=== PATIENT | male | born 1955 | race Caucasian/White ===

== ENCOUNTER 2020-01-22 10:14 | Inpatient (IN) ==
[2020-01-22 12:09] LABS: Basophils % 0.1 % (0.0-0.8); Hematocrit 44.9 VOL% (42.0-52.0); Hemoglobin 14.9 GM/DL (14.0-18.0); Immature Granulocytes % 0.9 %; Immature Granulocytes Absolute 0.07 #; Lymphocytes # 0.3 10*3/uL (1.4-4.0); Lymphocytes % 3.7 % (21.2-54.2); Mean Corpuscular HGB Conc 33.2 GM/DL (32-36); Mean Corpuscular Volume 92.2 FL (87-102); Mean Platelet Volume 9.2 FL (9.6-12.0); Monocytes % 4.4 % (1.7-12.7); Neutrophils % 90.9 % (38.7-73.9); Platelet Count 159 T/CUMM (130-400); Red Blood Count 4.87 MC/CUMM (3.8-5.5); Red Cell Distribution Width 13.4 % (9.3-17.3)
[2020-01-22 12:39] LABS: Alanine Aminotransferase 30 U/L (16-61); Albumin 3.2 G/DL (3.4-5.0); Alkaline Phosphatase 71 U/L (45-117); Aspartate Amino Transferase 20 U/L (0-37); Blood Urea Nitrogen 20 MG/DL (7-18); Calcium 9.2 MG/DL (8.5-10.1); Estimated Glom Filtration Rate 86 ML/MIN; Glucose 189 MG/DL (74-106); Osmolality,Calculated 284.5 MOS/KG (273-304); Total Protein 7.3 G/DL (6.4-8.3); Troponin I < 0.015 NG/ML (0.00-0.045)
[2020-01-22 14:06] LABS: PT Patient Result 10.4 SECS (9.8-11.9); Partial Thromboplastin Time 30.3 SECS (23.9-33.8)
[2020-01-22] MEDS ORDERED: GLUCAGON 1 MG VIAL IM PRN (14:23)
[2020-01-22] MEDS ORDERED: DEXTROSE 50% 25 GM/50 ML VIAL IV PRN (14:23)
[2020-01-22] MEDS ORDERED: ONDANSETRON 4 MG/2 ML VIAL IV PRN (14:23)
[2020-01-22] MEDS ORDERED: hydrALAZINE 20 MG/1 ML VIAL IV PRN (14:23)
[2020-01-22 14:26] LABS: Hypochromasia 1+; Lymphocytes 1 % (20-55); Segmented Neutrophils 93 % (50-85); Total Cells Counted 100
[2020-01-22 14:30] LABS: Platelet Estimate Normal
[2020-01-22 15:02] LABS: Risk Ratio 1.34; Thyroid Stimulating Hormone 0.412 uIU/ml (0.358-3.74); VLDL CHOLESTEROL 14.4 MG/DL
[2020-01-22] MEDS: AZITHROMYCIN 250 MG TABLET PO SCH (16:06)
[2020-01-22] MEDS: DEXAMETHASONE 4 MG TABLET PO SCH (16:06)
[2020-01-22] MEDS: ZINC SULFATE 220 MG CAPSULE PO SCH (16:06)
[2020-01-22] MEDS: CHOLECALCIFEROL 1,000 UNIT TABLET PO SCH (16:06)
[2020-01-22] MEDS: cefTRIAXone 1,000 MG in SYRINGE 1 EACH IV SCH (16:06)
[2020-01-22] MEDS: ENOXAPARIN 40 MG/0.4 ML SYRINGE SUBCUT SCH (16:24)
[2020-01-22] MEDS: TICAGRELOR 90 MG TABLET PO SCH (20:35)
[2020-01-22] MEDS: LOSARTAN 50 MG TABLET PO SCH (20:35)
[2020-01-22] MEDS: ATORVASTATIN 40 MG TABLET PO SCH (20:35)
[2020-01-22] MEDS: AZELASTINE NASAL 137 MCG/SPRAY 30 ML BOTTLE BOTH NARES SCH (20:35)
[2020-01-22] MEDS: BUDESONIDE/FORMOTEROL 160-4.5 INHALER 6 GM INH SCH (20:36)
[2020-01-22] MEDS: ALBUTEROL INHALER 18 GM INH SCH (20:36)
[2020-01-22] MEDS: ASCORBIC ACID 500 MG TABLET PO SCH (20:41)
[2020-01-23] MEDS: ALBUTEROL INHALER 18 GM INH SCH ×4 (01:12→20:24)
[2020-01-23 03:41] LABS: Basophils % 0.2 % (0.0-0.8); Hematocrit 43.6 VOL% (42.0-52.0); Hemoglobin 14.3 GM/DL (14.0-18.0); Immature Granulocytes % 2.3 %; Immature Granulocytes Absolute 0.13 #; Lymphocytes # 0.5 10*3/uL (1.4-4.0); Lymphocytes % 8.4 % (21.2-54.2); Mean Corpuscular HGB Conc 32.8 GM/DL (32-36); Mean Corpuscular Volume 91.8 FL (87-102); Mean Platelet Volume 9.2 FL (9.6-12.0); Monocytes % 9.2 % (1.7-12.7); Neutrophils % 79.9 % (38.7-73.9); Platelet Count 171 T/CUMM (130-400); Red Blood Count 4.75 MC/CUMM (3.8-5.5); White Blood Count 5.7 T/CUMM (4-12)
[2020-01-23 04:03] LABS: Calcium 8.8 MG/DL (8.5-10.1); Osmolality,Calculated 282.5 MOS/KG (273-304)
[2020-01-23] MEDS: AZELASTINE NASAL 137 MCG/SPRAY 30 ML BOTTLE BOTH NARES SCH ×2 (09:28→20:24)
[2020-01-23] MEDS: TICAGRELOR 90 MG TABLET PO SCH ×2 (09:28→20:24)
[2020-01-23] MEDS: DEXAMETHASONE 4 MG TABLET PO SCH (09:28)
[2020-01-23] MEDS: PANTOPRAZOLE 40 MG TABLET PO SCH (09:28)
[2020-01-23] MEDS: LOSARTAN 50 MG TABLET PO SCH ×2 (09:28→20:23)
[2020-01-23] MEDS: ENOXAPARIN 40 MG/0.4 ML SYRINGE SUBCUT SCH (09:28)
[2020-01-23] MEDS: cefTRIAXone 1,000 MG in SYRINGE 1 EACH IV SCH (09:29)
[2020-01-23] MEDS: BUDESONIDE/FORMOTEROL 160-4.5 INHALER 6 GM INH SCH ×2 (09:29→20:23)
[2020-01-23] MEDS: MONTELUKAST 10 MG TABLET PO SCH (09:29)
[2020-01-23] MEDS: THEOPHYLLINE ER 300 MG TABLET PO SCH (09:29)
[2020-01-23] MEDS: ASCORBIC ACID 500 MG TABLET PO SCH ×2 (09:30→20:23)
[2020-01-23] MEDS: CHOLECALCIFEROL 1,000 UNIT TABLET PO SCH (09:30)
[2020-01-23] MEDS: AZITHROMYCIN 250 MG TABLET PO SCH (09:30)
[2020-01-23] MEDS: ZINC SULFATE 220 MG CAPSULE PO SCH (09:30)
[2020-01-23] MEDS: METOPROLOL SUCCINATE XL 25 MG TABLET PO SCH (09:30)
[2020-01-23] MEDS: ATORVASTATIN 40 MG TABLET PO SCH (20:23)
[2020-01-24] MEDS: ALBUTEROL INHALER 18 GM INH SCH ×4 (01:52→19:27)
[2020-01-24 03:49] LABS: Basophils % 0.1 % (0.0-0.8); Hematocrit 45.6 VOL% (42.0-52.0); Immature Granulocytes % 0.7 %; Immature Granulocytes Absolute 0.06 #; Lymphocytes # 0.9 10*3/uL (1.4-4.0); Lymphocytes % 11.4 % (21.2-54.2); Mean Corpuscular HGB Conc 32.9 GM/DL (32-36); Mean Corpuscular Volume 93.3 FL (87-102); Mean Platelet Volume 9.6 FL (9.6-12.0); Monocytes % 8.8 % (1.7-12.7); Platelet Count 190 T/CUMM (130-400); Red Blood Count 4.89 MC/CUMM (3.8-5.5); Red Cell Distribution Width 13.1 % (9.3-17.3); White Blood Count 8.3 T/CUMM (4-12)
[2020-01-24 04:33] LABS: Calcium 9.3 MG/DL (8.5-10.1); Osmolality,Calculated 283.4 MOS/KG (273-304)
[2020-01-24] MEDS: cefTRIAXone 1,000 MG in SYRINGE 1 EACH IV SCH (08:59)
[2020-01-24] MEDS: AZELASTINE NASAL 137 MCG/SPRAY 30 ML BOTTLE BOTH NARES SCH ×2 (08:59→21:33)
[2020-01-24] MEDS: TICAGRELOR 90 MG TABLET PO SCH ×2 (08:59→21:32)
[2020-01-24] MEDS: ENOXAPARIN 40 MG/0.4 ML SYRINGE SUBCUT SCH (08:59)
[2020-01-24] MEDS: PANTOPRAZOLE 40 MG TABLET PO SCH (08:59)
[2020-01-24] MEDS: DEXAMETHASONE 4 MG TABLET PO SCH (08:59)
[2020-01-24] MEDS: LOSARTAN 50 MG TABLET PO SCH ×2 (08:59→21:32)
[2020-01-24] MEDS: BUDESONIDE/FORMOTEROL 160-4.5 INHALER 6 GM INH SCH ×2 (09:00→21:33)
[2020-01-24] MEDS: MONTELUKAST 10 MG TABLET PO SCH (09:00)
[2020-01-24] MEDS: ZINC SULFATE 220 MG CAPSULE PO SCH (09:00)
[2020-01-24] MEDS: CHOLECALCIFEROL 1,000 UNIT TABLET PO SCH (09:00)
[2020-01-24] MEDS: METOPROLOL SUCCINATE XL 25 MG TABLET PO SCH (09:00)
[2020-01-24] MEDS: AZITHROMYCIN 250 MG TABLET PO SCH ×2 (09:00→14:36)
[2020-01-24] MEDS: THEOPHYLLINE ER 300 MG TABLET PO SCH (09:00)
[2020-01-24] MEDS: ASCORBIC ACID 500 MG TABLET PO SCH ×2 (09:00→21:30)
[2020-01-24] MEDS: ACETAMINOPHEN 325 MG TABLET PO PRN (12:47)
[2020-01-24] MEDS: ATORVASTATIN 40 MG TABLET PO SCH (21:31)
[2020-01-25] MEDS: ALBUTEROL INHALER 18 GM INH SCH ×4 (00:21→18:14)
[2020-01-25 05:37] LABS: Basophils % 0.2 % (0.0-0.8); Hematocrit 43.6 VOL% (42.0-52.0); Hemoglobin 14.7 GM/DL (14.0-18.0); Immature Granulocytes % 0.6 %; Immature Granulocytes Absolute 0.04 #; Lymphocytes # 0.8 10*3/uL (1.4-4.0); Lymphocytes % 11.9 % (21.2-54.2); Mean Corpuscular HGB Conc 33.7 GM/DL (32-36); Mean Corpuscular Volume 91.2 FL (87-102); Mean Platelet Volume 9.3 FL (9.6-12.0); Monocytes % 9.7 % (1.7-12.7); Neutrophils % 77.6 % (38.7-73.9); Platelet Count 185 T/CUMM (130-400); Red Blood Count 4.78 MC/CUMM (3.8-5.5); Red Cell Distribution Width 12.9 % (9.3-17.3); White Blood Count 6.3 T/CUMM (4-12)
[2020-01-25 06:02] LABS: Calcium 9.3 MG/DL (8.5-10.1); Osmolality,Calculated 282.4 MOS/KG (273-304)
[2020-01-25] MEDS: TICAGRELOR 90 MG TABLET PO SCH ×2 (08:56→20:26)
[2020-01-25] MEDS: AZITHROMYCIN 250 MG TABLET PO SCH (08:57)
[2020-01-25] MEDS: LOSARTAN 50 MG TABLET PO SCH ×2 (08:57→20:26)
[2020-01-25] MEDS: MONTELUKAST 10 MG TABLET PO SCH (08:57)
[2020-01-25] MEDS: METOPROLOL SUCCINATE XL 25 MG TABLET PO SCH (08:58)
[2020-01-25] MEDS: THEOPHYLLINE ER 300 MG TABLET PO SCH (08:58)
[2020-01-25] MEDS: CHOLECALCIFEROL 1,000 UNIT TABLET PO SCH (08:59)
[2020-01-25] MEDS: ASCORBIC ACID 500 MG TABLET PO SCH ×2 (08:59→20:26)
[2020-01-25] MEDS: DEXAMETHASONE 4 MG TABLET PO SCH (09:00)
[2020-01-25] MEDS: PANTOPRAZOLE 40 MG TABLET PO SCH (09:00)
[2020-01-25] MEDS: ZINC SULFATE 220 MG CAPSULE PO SCH (09:00)
[2020-01-25] MEDS: cefTRIAXone 1,000 MG in SYRINGE 1 EACH IV SCH (09:00)
[2020-01-25] MEDS: ENOXAPARIN 40 MG/0.4 ML SYRINGE SUBCUT SCH (09:01)
[2020-01-25] MEDS: AZELASTINE NASAL 137 MCG/SPRAY 30 ML BOTTLE BOTH NARES SCH ×2 (09:01→20:26)
[2020-01-25] MEDS: BUDESONIDE/FORMOTEROL 160-4.5 INHALER 6 GM INH SCH ×2 (09:01→20:26)
[2020-01-25] MEDS: ACETAMINOPHEN 325 MG TABLET PO PRN (20:26)
[2020-01-25] MEDS: ATORVASTATIN 40 MG TABLET PO SCH (20:26)
[2020-01-26] MEDS: ALBUTEROL INHALER 18 GM INH SCH ×4 (00:20→18:02)
[2020-01-26 05:12] LABS: Hematocrit 44.5 VOL% (42.0-52.0); Hemoglobin 14.7 GM/DL (14.0-18.0); Immature Granulocytes % 1.1 %; Immature Granulocytes Absolute 0.08 #; Lymphocytes # 0.7 10*3/uL (1.4-4.0); Lymphocytes % 9.3 % (21.2-54.2); Mean Corpuscular Volume 92.5 FL (87-102); Mean Platelet Volume 8.9 FL (9.6-12.0); Monocytes % 7.9 % (1.7-12.7); Neutrophils % 81.7 % (38.7-73.9); Platelet Count 190 T/CUMM (130-400); Red Blood Count 4.81 MC/CUMM (3.8-5.5); Red Cell Distribution Width 12.8 % (9.3-17.3); White Blood Count 7.2 T/CUMM (4-12)
[2020-01-26 05:34] LABS: Calcium 9.1 MG/DL (8.5-10.1); Osmolality,Calculated 282.4 MOS/KG (273-304)
[2020-01-26] MEDS: MONTELUKAST 10 MG TABLET PO SCH (09:45)
[2020-01-26] MEDS: ASCORBIC ACID 500 MG TABLET PO SCH ×2 (09:45→20:38)
[2020-01-26] MEDS: AZELASTINE NASAL 137 MCG/SPRAY 30 ML BOTTLE BOTH NARES SCH ×2 (09:45→20:37)
[2020-01-26] MEDS: THEOPHYLLINE ER 300 MG TABLET PO SCH (09:45)
[2020-01-26] MEDS: BUDESONIDE/FORMOTEROL 160-4.5 INHALER 6 GM INH SCH ×2 (09:45→20:37)
[2020-01-26] MEDS: AZITHROMYCIN 250 MG TABLET PO SCH (09:45)
[2020-01-26] MEDS: cefTRIAXone 1,000 MG in SYRINGE 1 EACH IV SCH (09:45)
[2020-01-26] MEDS: METOPROLOL SUCCINATE XL 25 MG TABLET PO SCH (09:45)
[2020-01-26] MEDS: DEXAMETHASONE 4 MG TABLET PO SCH (09:45)
[2020-01-26] MEDS: ENOXAPARIN 40 MG/0.4 ML SYRINGE SUBCUT SCH (09:45)
[2020-01-26] MEDS: LOSARTAN 50 MG TABLET PO SCH ×2 (09:45→20:38)
[2020-01-26] MEDS: PANTOPRAZOLE 40 MG TABLET PO SCH (09:45)
[2020-01-26] MEDS: TICAGRELOR 90 MG TABLET PO SCH ×2 (09:45→20:38)
[2020-01-26] MEDS: ZINC SULFATE 220 MG CAPSULE PO SCH (09:45)
[2020-01-26] MEDS: CHOLECALCIFEROL 1,000 UNIT TABLET PO SCH (17:55)
[2020-01-26] MEDS: ATORVASTATIN 40 MG TABLET PO SCH (20:38)
[2020-01-27] MEDS: ALBUTEROL INHALER 18 GM INH SCH ×4 (00:33→18:13)
[2020-01-27 04:30] LABS: ABG Base Excess 3.3 MMOL/L (-2.5-2.5); ABG HCO3 27.3 MMOL/L (20-26); ABG Oxygen Saturation 95.2 % (95-100); ABG PH 7.439 (7.35-7.45); ABG PO2 74.7 MM HG (80-95); ABG TCO2 23.7 MMOL/L (23-27); Allen Test Positive
[2020-01-27] MEDS: AZELASTINE NASAL 137 MCG/SPRAY 30 ML BOTTLE BOTH NARES SCH ×2 (09:36→20:58)
[2020-01-27] MEDS: TICAGRELOR 90 MG TABLET PO SCH ×2 (09:36→20:58)
[2020-01-27] MEDS: LOSARTAN 50 MG TABLET PO SCH ×2 (09:36→20:58)
[2020-01-27] MEDS: DEXAMETHASONE 4 MG/1 ML VIAL IV SCH (09:36)
[2020-01-27] MEDS: ENOXAPARIN 40 MG/0.4 ML SYRINGE SUBCUT SCH (09:37)
[2020-01-27] MEDS: ZINC SULFATE 220 MG CAPSULE PO SCH (09:37)
[2020-01-27] MEDS: AZITHROMYCIN 250 MG TABLET PO SCH (09:37)
[2020-01-27] MEDS: CHOLECALCIFEROL 1,000 UNIT TABLET PO SCH (09:37)
[2020-01-27] MEDS: ASCORBIC ACID 500 MG TABLET PO SCH ×2 (09:37→20:58)
[2020-01-27] MEDS: METOPROLOL SUCCINATE XL 25 MG TABLET PO SCH (09:37)
[2020-01-27] MEDS: MONTELUKAST 10 MG TABLET PO SCH (09:37)
[2020-01-27] MEDS: PANTOPRAZOLE 40 MG TABLET PO SCH (09:37)
[2020-01-27] MEDS: BUDESONIDE/FORMOTEROL 160-4.5 INHALER 6 GM INH SCH ×2 (09:37→20:59)
[2020-01-27] MEDS: cefTRIAXone 1,000 MG in SYRINGE 1 EACH IV SCH (09:37)
[2020-01-27] MEDS: THEOPHYLLINE ER 300 MG TABLET PO SCH (09:37)
[2020-01-27 09:47] LABS: Basophils % 0.1 % (0.0-0.8); Hematocrit 43.5 VOL% (42.0-52.0); Hemoglobin 14.5 GM/DL (14.0-18.0); Immature Granulocytes Absolute 0.08 #; Lymphocytes # 0.7 10*3/uL (1.4-4.0); Lymphocytes % 8.1 % (21.2-54.2); Mean Corpuscular HGB Conc 33.3 GM/DL (32-36); Mean Platelet Volume 8.9 FL (9.6-12.0); Monocytes % 5.6 % (1.7-12.7); Neutrophils % 85.2 % (38.7-73.9); Platelet Count 191 T/CUMM (130-400); Red Blood Count 4.73 MC/CUMM (3.8-5.5); Red Cell Distribution Width 12.8 % (9.3-17.3); White Blood Count 8.3 T/CUMM (4-12)
[2020-01-27 10:10] LABS: Calcium 9.2 MG/DL (8.5-10.1); Osmolality,Calculated 275.8 MOS/KG (273-304)
[2020-01-27] MEDS ORDERED: REMDESIVIR 200 MG in SODIUM CHLORIDE 0.9% 210 ML IV ONE (10:30)
[2020-01-27] MEDS ORDERED: SODIUM CHLORIDE 0.9% 1,000 ML IV PRN (11:35)
[2020-01-27] MEDS: ATORVASTATIN 40 MG TABLET PO SCH (20:58)
[2020-01-28] MEDS: ALBUTEROL INHALER 18 GM INH SCH ×4 (01:15→18:22)
[2020-01-28 05:20] LABS: Ferritin 433.6 ng/ml (26-388)
[2020-01-28] MEDS: DEXAMETHASONE 4 MG/1 ML VIAL IV SCH (10:37)
[2020-01-28] MEDS: LOSARTAN 50 MG TABLET PO SCH ×2 (10:37→20:37)
[2020-01-28] MEDS: TICAGRELOR 90 MG TABLET PO SCH ×2 (10:37→20:37)
[2020-01-28] MEDS: MONTELUKAST 10 MG TABLET PO SCH (10:38)
[2020-01-28] MEDS: ENOXAPARIN 40 MG/0.4 ML SYRINGE SUBCUT SCH (10:38)
[2020-01-28] MEDS: BUDESONIDE/FORMOTEROL 160-4.5 INHALER 6 GM INH SCH ×2 (10:38→20:43)
[2020-01-28] MEDS: PANTOPRAZOLE 40 MG TABLET PO SCH (10:38)
[2020-01-28] MEDS: REMDESIVIR 100 MG in SODIUM CHLORIDE 0.9% 230 ML IV SCH (10:38)
[2020-01-28] MEDS: ASCORBIC ACID 500 MG TABLET PO SCH ×2 (10:39→20:37)
[2020-01-28] MEDS: cefTRIAXone 1,000 MG in SYRINGE 1 EACH IV SCH (10:39)
[2020-01-28] MEDS: ZINC SULFATE 220 MG CAPSULE PO SCH (10:39)
[2020-01-28] MEDS: METOPROLOL SUCCINATE XL 25 MG TABLET PO SCH (10:39)
[2020-01-28] MEDS: CHOLECALCIFEROL 1,000 UNIT TABLET PO SCH (10:39)
[2020-01-28] MEDS: THEOPHYLLINE ER 300 MG TABLET PO SCH (10:39)
[2020-01-28] MEDS: AZITHROMYCIN 250 MG TABLET PO SCH (10:39)
[2020-01-28] MEDS: AZELASTINE NASAL 137 MCG/SPRAY 30 ML BOTTLE BOTH NARES SCH ×2 (10:40→20:43)
[2020-01-28] MEDS: ATORVASTATIN 40 MG TABLET PO SCH (20:37)
[2020-01-29] MEDS: ALBUTEROL INHALER 18 GM INH SCH ×4 (02:19→18:04)
[2020-01-29 05:09] LABS: Basophils % 0.3 % (0.0-0.8); Hematocrit 41.1 VOL% (42.0-52.0); Hemoglobin 13.6 GM/DL (14.0-18.0); Immature Granulocytes % 1.7 %; Immature Granulocytes Absolute 0.12 #; Lymphocytes # 0.5 10*3/uL (1.4-4.0); Lymphocytes % 6.9 % (21.2-54.2); Mean Corpuscular HGB Conc 33.1 GM/DL (32-36); Mean Corpuscular Volume 91.7 FL (87-102); Mean Platelet Volume 8.9 FL (9.6-12.0); Monocytes % 6.8 % (1.7-12.7); Neutrophils % 84.3 % (38.7-73.9); Platelet Count 252 T/CUMM (130-400); Red Blood Count 4.48 MC/CUMM (3.8-5.5); Red Cell Distribution Width 12.8 % (9.3-17.3); White Blood Count 6.9 T/CUMM (4-12)
[2020-01-29 05:33] LABS: Calcium 8.8 MG/DL (8.5-10.1); Osmolality,Calculated 283.5 MOS/KG (273-304)
[2020-01-29 05:38] LABS: Ferritin 473.7 ng/ml (26-388)
[2020-01-29] MEDS: cefTRIAXone 1,000 MG in SYRINGE 1 EACH IV SCH (09:40)
[2020-01-29] MEDS: DEXAMETHASONE 4 MG/1 ML VIAL IV SCH (09:43)
[2020-01-29] MEDS: AZELASTINE NASAL 137 MCG/SPRAY 30 ML BOTTLE BOTH NARES SCH ×2 (09:45→20:45)
[2020-01-29] MEDS: PANTOPRAZOLE 40 MG TABLET PO SCH (09:45)
[2020-01-29] MEDS: LOSARTAN 50 MG TABLET PO SCH ×2 (09:45→20:45)
[2020-01-29] MEDS: ENOXAPARIN 40 MG/0.4 ML SYRINGE SUBCUT SCH (09:45)
[2020-01-29] MEDS: TICAGRELOR 90 MG TABLET PO SCH ×2 (09:45→20:45)
[2020-01-29] MEDS: REMDESIVIR 100 MG in SODIUM CHLORIDE 0.9% 230 ML IV SCH (09:46)
[2020-01-29] MEDS: THEOPHYLLINE ER 300 MG TABLET PO SCH (09:48)
[2020-01-29] MEDS: BUDESONIDE/FORMOTEROL 160-4.5 INHALER 6 GM INH SCH ×2 (09:48→20:45)
[2020-01-29] MEDS: ASCORBIC ACID 500 MG TABLET PO SCH ×2 (09:48→20:45)
[2020-01-29] MEDS: CHOLECALCIFEROL 1,000 UNIT TABLET PO SCH (09:48)
[2020-01-29] MEDS: ZINC SULFATE 220 MG CAPSULE PO SCH (09:48)
[2020-01-29] MEDS: METOPROLOL SUCCINATE XL 25 MG TABLET PO SCH (09:48)
[2020-01-29] MEDS: MONTELUKAST 10 MG TABLET PO SCH (09:48)
[2020-01-29] MEDS: AZITHROMYCIN 250 MG TABLET PO SCH (09:48)
[2020-01-29 10:59] LABS: ABG Base Excess 2.5 MMOL/L (-2.5-2.5); ABG HCO3 26.4 MMOL/L (20-26); ABG Oxygen Saturation 89.8 % (95-100); ABG PCO2 39.2 MM HG (35-48); ABG PO2 62.5 MM HG (80-95); ABG TCO2 22.7 MMOL/L (23-27)
[2020-01-29] MEDS ORDERED: SODIUM CHLORIDE 0.9% 1,000 ML IV PRN (14:25)
[2020-01-29 17:49] LABS: Bilirubin,Urine Negative (Negative); Blood, Urine NEGATIVE (Negative); Glucose,Urine (UA) Negative (Negative); Ketones,Urine Negative (Negative); Mucus,Urine Occasional /LPF (Occasional); Nitrite,Urine Negative (Negative); Protein,Urine Negative; Squamous Epithelial Cell,Urine Occasional /HPF (0-10); Urine Appearance Clear (Clear); Urine Color Yellow (Yellow)
[2020-01-29 17:50] LABS: Urine Urobilinogen 0.2 EU/DL (0.2-1.0)
[2020-01-29] MEDS: ATORVASTATIN 40 MG TABLET PO SCH (20:45)
[2020-01-29 22:11] VITALS: BP 102/61
[2020-01-30] MEDS: ALBUTEROL INHALER 18 GM INH SCH ×4 (01:28→18:47)
[2020-01-30 03:43] LABS: Basophils % 0.2 % (0.0-0.8); Hematocrit 39.9 VOL% (42.0-52.0); Hemoglobin 13.4 GM/DL (14.0-18.0); Immature Granulocytes % 2.1 %; Lymphocytes # 0.5 10*3/uL (1.4-4.0); Lymphocytes % 5.1 % (21.2-54.2); Mean Corpuscular HGB Conc 33.6 GM/DL (32-36); Mean Corpuscular Volume 90.9 FL (87-102); Mean Platelet Volume 8.6 FL (9.6-12.0); Monocytes % 5.4 % (1.7-12.7); Neutrophils % 87.2 % (38.7-73.9); Platelet Count 240 T/CUMM (130-400); Red Blood Count 4.39 MC/CUMM (3.8-5.5); Red Cell Distribution Width 12.6 % (9.3-17.3); White Blood Count 9.4 T/CUMM (4-12)
[2020-01-30 04:01] LABS: INR 1.1; PT Patient Result 11.4 SECS (9.8-11.9)
[2020-01-30 04:03] LABS: Albumin 2.4 G/DL (3.4-5.0); Calcium 8.7 MG/DL (8.5-10.1); Osmolality,Calculated 286.4 MOS/KG (273-304); Total Protein 6.1 G/DL (6.4-8.3)
[2020-01-30 04:15] LABS: ABG Base Excess 3.2 MMOL/L (-2.5-2.5); ABG HCO3 27.1 MMOL/L (20-26); ABG Oxygen Saturation 94.7 % (95-100); ABG PCO2 40.8 MM HG (35-48); ABG PH 7.438 (7.35-7.45); ABG PO2 73.6 MM HG (80-95); ABG TCO2 23.7 MMOL/L (23-27); Allen Test Positive; Pt O2 Delivery Device Other
[2020-01-30 04:25] LABS: Ferritin 484.9 ng/ml (26-388)
[2020-01-30 04:53] LABS: Sedimentation Rate-Westergren 63 MM/HR (0-20)
[2020-01-30] MEDS: DEXAMETHASONE 4 MG/1 ML VIAL IV SCH (08:10)
[2020-01-30] MEDS: ENOXAPARIN 60 MG/0.6 ML SYRINGE SUBCUT SCH ×2 (08:10→20:14)
[2020-01-30] MEDS: CHOLECALCIFEROL 1,000 UNIT TABLET PO SCH (08:11)
[2020-01-30] MEDS: THEOPHYLLINE ER 300 MG TABLET PO SCH (08:11)
[2020-01-30] MEDS: ASCORBIC ACID 500 MG TABLET PO SCH ×2 (08:11→20:13)
[2020-01-30] MEDS: METOPROLOL SUCCINATE XL 25 MG TABLET PO SCH (08:12)
[2020-01-30] MEDS: MONTELUKAST 10 MG TABLET PO SCH (08:12)
[2020-01-30] MEDS: TICAGRELOR 90 MG TABLET PO SCH ×2 (08:12→20:13)
[2020-01-30] MEDS: AZITHROMYCIN 250 MG TABLET PO SCH (08:12)
[2020-01-30] MEDS: PANTOPRAZOLE 40 MG TABLET PO SCH (08:12)
[2020-01-30] MEDS: ZINC SULFATE 220 MG CAPSULE PO SCH (08:13)
[2020-01-30] MEDS: LOSARTAN 50 MG TABLET PO SCH ×2 (08:13→20:13)
[2020-01-30] MEDS: AZELASTINE NASAL 137 MCG/SPRAY 30 ML BOTTLE BOTH NARES SCH ×2 (08:32→20:14)
[2020-01-30] MEDS: BUDESONIDE/FORMOTEROL 160-4.5 INHALER 6 GM INH SCH ×2 (08:33→20:14)
[2020-01-30] MEDS: REMDESIVIR 100 MG in SODIUM CHLORIDE 0.9% 230 ML IV SCH (09:09)
[2020-01-30] MEDS: ATORVASTATIN 40 MG TABLET PO SCH (20:13)
[2020-01-30] MEDS ORDERED: ZALEPLON 5 MG CAPSULE PO PRN (21:00)
[2020-01-31] MEDS: ALBUTEROL INHALER 18 GM INH SCH ×4 (00:25→18:25)
[2020-01-31 04:54] LABS: Basophils % 0.3 % (0.0-0.8); Eosinophils % 0.1 % (0.00-10.9); Hematocrit 43.7 VOL% (42.0-52.0); Hemoglobin 14.5 GM/DL (14.0-18.0); Immature Granulocytes % 2.7 %; Lymphocytes # 0.6 10*3/uL (1.4-4.0); Lymphocytes % 3.8 % (21.2-54.2); Mean Corpuscular HGB Conc 33.2 GM/DL (32-36); Mean Corpuscular Volume 91.6 FL (87-102); Mean Platelet Volume 8.7 FL (9.6-12.0); Neutrophils % 88.1 % (38.7-73.9); Platelet Count 263 T/CUMM (130-400); Red Blood Count 4.77 MC/CUMM (3.8-5.5); Red Cell Distribution Width 12.6 % (9.3-17.3); White Blood Count 15.1 T/CUMM (4-12)
[2020-01-31 05:05] LABS: INR 1.1; PT Patient Result 11.8 SECS (9.8-11.9)
[2020-01-31 05:18] LABS: Albumin 2.5 G/DL (3.4-5.0); Bilirubin,Total 1.6 MG/DL (0.2-1.0); Calcium 9.3 MG/DL (8.5-10.1); Osmolality,Calculated 286.4 MOS/KG (273-304)
[2020-01-31 05:24] LABS: Band Neutrophils 1 % (0-10); Lymphocytes 4 % (20-55); Platelet Estimate Adequate; Segmented Neutrophils 88 % (50-85); Total Cells Counted 100
[2020-01-31 05:25] LABS: Microcytosis Slight
[2020-01-31 05:30] LABS: Ferritin 491.4 ng/ml (26-388)
[2020-01-31 06:07] LABS: Sedimentation Rate-Westergren 48 MM/HR (0-20)
[2020-01-31 06:11] LABS: ABG Base Excess 3.4 MMOL/L (-2.5-2.5); ABG HCO3 27.2 MMOL/L (20-26); ABG Oxygen Saturation 86.9 % (95-100); ABG PCO2 37.6 MM HG (35-48); ABG PH 7.466 (7.35-7.45); ABG PO2 53.4 MM HG (80-95); ABG TCO2 23.2 MMOL/L (23-27); Allen Test Positive; Pt O2 Delivery Device Other
[2020-01-31] MEDS: BUDESONIDE/FORMOTEROL 160-4.5 INHALER 6 GM INH SCH ×2 (08:15→20:20)
[2020-01-31] MEDS: AZELASTINE NASAL 137 MCG/SPRAY 30 ML BOTTLE BOTH NARES SCH ×2 (08:15→20:20)
[2020-01-31] MEDS: DEXAMETHASONE 4 MG/1 ML VIAL IV SCH (08:33)
[2020-01-31] MEDS: MONTELUKAST 10 MG TABLET PO SCH (08:34)
[2020-01-31] MEDS: ENOXAPARIN 60 MG/0.6 ML SYRINGE SUBCUT SCH ×2 (08:34→20:20)
[2020-01-31] MEDS: THEOPHYLLINE ER 300 MG TABLET PO SCH (08:34)
[2020-01-31] MEDS: ZINC SULFATE 220 MG CAPSULE PO SCH (08:34)
[2020-01-31] MEDS: LOSARTAN 50 MG TABLET PO SCH ×2 (08:34→20:24)
[2020-01-31] MEDS: ASCORBIC ACID 500 MG TABLET PO SCH ×2 (08:34→20:19)
[2020-01-31] MEDS: AZITHROMYCIN 250 MG TABLET PO SCH (08:34)
[2020-01-31] MEDS: PANTOPRAZOLE 40 MG TABLET PO SCH (08:35)
[2020-01-31] MEDS: METOPROLOL SUCCINATE XL 25 MG TABLET PO SCH (08:35)
[2020-01-31] MEDS: CHOLECALCIFEROL 1,000 UNIT TABLET PO SCH (08:35)
[2020-01-31] MEDS: TICAGRELOR 90 MG TABLET PO SCH ×2 (08:35→20:19)
[2020-01-31] MEDS: REMDESIVIR 100 MG in SODIUM CHLORIDE 0.9% 230 ML IV SCH (10:30)
[2020-01-31] MEDS: ATORVASTATIN 40 MG TABLET PO SCH (20:20)
[2020-02-01 03:51] LABS: Allen Test Positive
[2020-02-01 03:52] LABS: ABG Base Excess 2.1 MMOL/L (-2.5-2.5); ABG HCO3 25.8 MMOL/L (20-26); ABG Oxygen Saturation 87.5 % (95-100); ABG PCO2 37.4 MM HG (35-48); ABG PH 7.456 (7.35-7.45); ABG PO2 53.5 MM HG (80-95); ABG TCO2 26.9 MMOL/L (23-27)
[2020-02-01] MEDS: ALBUTEROL INHALER 18 GM INH SCH ×3 (04:20→13:03)
[2020-02-01 04:22] LABS: Basophils % 0.3 % (0.0-0.8); Hematocrit 44.2 VOL% (42.0-52.0); Hemoglobin 14.6 GM/DL (14.0-18.0); Immature Granulocytes Absolute 0.59 #; Lymphocytes # 0.5 10*3/uL (1.4-4.0); Lymphocytes % 3.5 % (21.2-54.2); Mean Corpuscular Volume 91.7 FL (87-102); Mean Platelet Volume 8.7 FL (9.6-12.0); Monocytes % 4.6 % (1.7-12.7); Neutrophils % 87.6 % (38.7-73.9); Platelet Count 268 T/CUMM (130-400); Red Blood Count 4.82 MC/CUMM (3.8-5.5); Red Cell Distribution Width 12.7 % (9.3-17.3); White Blood Count 14.6 T/CUMM (4-12)
[2020-02-01 04:46] LABS: INR 1.1; PT Patient Result 11.6 SECS (9.8-11.9)
[2020-02-01 04:52] LABS: Lymphocytes 4 % (20-55); Platelet Estimate Normal; Segmented Neutrophils 93 % (50-85); Total Cells Counted 100
[2020-02-01 05:05] LABS: Albumin 2.4 G/DL (3.4-5.0); Bilirubin,Total 1.8 MG/DL (0.2-1.0); Calcium 9.1 MG/DL (8.5-10.1); Ferritin 487.8 ng/ml (26-388); Total Protein 6.9 G/DL (6.4-8.3)
[2020-02-01 06:36] LABS: Sedimentation Rate-Westergren 73 MM/HR (0-20)
[2020-02-01] MEDS: AZELASTINE NASAL 137 MCG/SPRAY 30 ML BOTTLE BOTH NARES SCH (06:45)
[2020-02-01] MEDS: DEXAMETHASONE 4 MG/1 ML VIAL IV SCH (08:25)
[2020-02-01] MEDS: BUDESONIDE/FORMOTEROL 160-4.5 INHALER 6 GM INH SCH (08:25)
[2020-02-01] MEDS: ENOXAPARIN 60 MG/0.6 ML SYRINGE SUBCUT SCH (08:25)
[2020-02-01] MEDS: MONTELUKAST 10 MG TABLET PO SCH (08:26)
[2020-02-01] MEDS: PANTOPRAZOLE 40 MG TABLET PO SCH (08:26)
[2020-02-01] MEDS: LOSARTAN 50 MG TABLET PO SCH (08:26)
[2020-02-01] MEDS: TICAGRELOR 90 MG TABLET PO SCH (08:26)
[2020-02-01] MEDS: THEOPHYLLINE ER 300 MG TABLET PO SCH (08:26)
[2020-02-01] MEDS: METOPROLOL SUCCINATE XL 25 MG TABLET PO SCH (08:26)
[2020-02-01] MEDS: ASCORBIC ACID 500 MG TABLET PO SCH (08:26)
[2020-02-01] MEDS: CHOLECALCIFEROL 1,000 UNIT TABLET PO SCH (08:26)
[2020-02-01] MEDS: ZINC SULFATE 220 MG CAPSULE PO SCH (08:27)
[2020-02-01] MEDS ORDERED: MONTELUKAST 10 MG TABLET PO SCH (09:30)
[2020-02-01] MEDS ORDERED: PIPERACILLIN/TAZOBACTAM 3,375 MG in SODIUM CHLORIDE 0.9% 100 ML IV SCH (09:30)
[2020-02-01] MEDS: PIPERACILLIN/TAZOBACTAM 3,375 MG in SODIUM CHLORIDE 0.9% 100 ML IV SCH ×2 (10:04→17:25)
== END 2020-02-01 18:25 | DRG 177 ==
LOC: N.ED 10:14 → N.EDINP 10:14 → N.2E 15:08 → SUATTDRO 01-25 13:29 → N.CC 01-29 15:46
PROVIDERS: ADMIT Emergency Medicine; ATTEND Internal Medicine

== ENCOUNTER 2020-02-07 10:37 | Inpatient (IN) ==
[2020-02-07] MEDS ORDERED: ONDANSETRON 4 MG/2 ML VIAL IV PRN (14:43)
[2020-02-07] MEDS ORDERED: ALBUTEROL 2.5 MG/3 ML NEB RESP TX PRN (14:43)
[2020-02-07] MEDS: ROCURONIUM 500 MG in SODIUM CHLORIDE 0.9% 500 ML IV PRN (14:59)
[2020-02-07] MEDS: fentaNYL INJ 1,250 MCG in SODIUM CHLORIDE 0.9% 225 ML IV PRN (15:13)
[2020-02-07] MEDS: NOREPINEPHRINE 8 MG in SODIUM CHLORIDE 0.9% 242 ML IV SCH ×2 (17:21→23:21)
[2020-02-07] MEDS: BUDESONIDE/FORMOTEROL 160-4.5 INHALER 6 GM INH SCH (20:58)
[2020-02-07] MEDS: ALBUTEROL INHALER 18 GM INH SCH (21:03)
[2020-02-07] MEDS: ATORVASTATIN 40 MG TABLET PO SCH (21:04)
[2020-02-07] MEDS: ENOXAPARIN 60 MG/0.6 ML SYRINGE SUBCUT SCH (21:04)
[2020-02-07] MEDS: ASCORBIC ACID 500 MG TABLET PO SCH (21:05)
[2020-02-07] MEDS: TICAGRELOR 90 MG TABLET PO SCH (21:05)
[2020-02-08] MEDS: fentaNYL INJ 1,250 MCG in SODIUM CHLORIDE 0.9% 225 ML IV PRN ×3 (00:45→18:26)
[2020-02-08] MEDS: ROCURONIUM 500 MG in SODIUM CHLORIDE 0.9% 500 ML IV PRN ×3 (01:35→18:25)
[2020-02-08] MEDS: ALBUTEROL INHALER 18 GM INH SCH ×4 (01:42→18:08)
[2020-02-08 04:27] LABS: Basophils % 0.1 % (0.0-0.8); Hematocrit 39.4 VOL% (42.0-52.0); Hemoglobin 12.1 GM/DL (14.0-18.0); Immature Granulocytes % 3.9 %; Immature Granulocytes Absolute 0.79 #; Lymphocytes # 0.4 10*3/uL (1.4-4.0); Mean Corpuscular HGB Conc 30.7 GM/DL (32-36); Mean Platelet Volume 9.3 FL (9.6-12.0); Monocytes % 5.2 % (1.7-12.7); NRBC # 0.05 10*3/uL; Neutrophils % 88.8 % (38.7-73.9); Platelet Count 317 T/CUMM (130-400); Red Blood Count 3.94 MC/CUMM (3.8-5.5); Red Cell Distribution Width 13.7 % (9.3-17.3); White Blood Count 20.4 T/CUMM (4-12)
[2020-02-08 04:35] LABS: ABG Base Excess -12.1 MMOL/L (-2.5-2.5); ABG HCO3 14.9 MMOL/L (20-26); ABG Oxygen Saturation 82.1 % (95-100); ABG PCO2 67.2 MM HG (35-48); ABG PO2 53.1 MM HG (80-95); ABG TCO2 18.6 MMOL/L (23-27); Allen Test Positive; Pt O2 Delivery Device Ventilator
[2020-02-08 04:47] LABS: Band Neutrophils 2 % (0-10); Lymphocytes 3 % (20-55); Platelet Estimate Adequate; Segmented Neutrophils 92 % (50-85); Total Cells Counted 100
[2020-02-08 04:48] LABS: Microcytosis Slight
[2020-02-08 04:49] LABS: ABG PH 7.074 (7.35-7.45)
[2020-02-08 04:55] LABS: Albumin 2.6 G/DL (3.4-5.0); Bilirubin,Total 0.7 MG/DL (0.2-1.0); Calcium 8.2 MG/DL (8.5-10.1); Osmolality,Calculated 325.4 MOS/KG (273-304); Total Protein 6.7 G/DL (6.4-8.3)
[2020-02-08] MEDS: ASCORBIC ACID 500 MG TABLET PO SCH ×2 (08:00→20:38)
[2020-02-08] MEDS: TICAGRELOR 90 MG TABLET PO SCH ×2 (08:00→20:38)
[2020-02-08] MEDS: PANTOPRAZOLE 40 MG VIAL IV SCH (08:01)
[2020-02-08] MEDS: DEXAMETHASONE 10 MG/1 ML VIAL IV SCH (08:02)
[2020-02-08] MEDS: ENOXAPARIN 60 MG/0.6 ML SYRINGE SUBCUT SCH ×2 (08:02→20:38)
[2020-02-08] MEDS: BUDESONIDE/FORMOTEROL 160-4.5 INHALER 6 GM INH SCH ×2 (08:05→20:38)
[2020-02-08] MEDS ORDERED: SODIUM BICARBONATE 50 MEQ/50 ML VIAL IV ONE ×3 (08:10→12:58)
[2020-02-08 08:27] LABS: ABG Base Excess -12.1 MMOL/L (-2.5-2.5); ABG HCO3 14.8 MMOL/L (20-26); ABG Oxygen Saturation 82.1 % (95-100); ABG PCO2 65.5 MM HG (35-48); ABG PO2 53.1 MM HG (80-95); ABG TCO2 18.3 MMOL/L (23-27)
[2020-02-08 08:32] LABS: ABG PH 7.079 (7.35-7.45)
[2020-02-08] MEDS: PIPERACILLIN/TAZOBACTAM 3,375 MG in SODIUM CHLORIDE 0.9% 100 ML IV SCH ×2 (09:16→20:37)
[2020-02-08] MEDS: ALBUMIN 25% 12.5 GM in PREMIX 1 EACH IV SCH ×2 (09:29→16:05)
[2020-02-08] MEDS: NOREPINEPHRINE 8 MG in SODIUM CHLORIDE 0.9% 242 ML IV SCH ×3 (10:01→22:30)
[2020-02-08 11:27] LABS: ABG Base Excess -9.7 MMOL/L (-2.5-2.5); ABG HCO3 16.5 MMOL/L (20-26); ABG Oxygen Saturation 81.4 % (95-100); ABG PO2 52.5 MM HG (80-95); ABG TCO2 19.6 MMOL/L (23-27)
[2020-02-08 11:30] LABS: ABG PH 7.122 (7.35-7.45)
[2020-02-08] MEDS: ATORVASTATIN 40 MG TABLET PO SCH (20:38)
[2020-02-09] MEDS: ALBUTEROL INHALER 18 GM INH SCH ×4 (00:07→18:08)
[2020-02-09] MEDS: ALBUMIN 25% 12.5 GM in PREMIX 1 EACH IV SCH (00:07)
[2020-02-09] MEDS: guaiFENesin 200 MG/10 ML UDCUP PO SCH ×5 (00:07→23:53)
[2020-02-09] MEDS: ROCURONIUM 500 MG in SODIUM CHLORIDE 0.9% 500 ML IV PRN (02:00)
[2020-02-09] MEDS: fentaNYL INJ 1,250 MCG in SODIUM CHLORIDE 0.9% 225 ML IV PRN (03:10)
[2020-02-09 04:42] LABS: ABG Base Excess -9.5 MMOL/L (-2.5-2.5); ABG HCO3 16.7 MMOL/L (20-26); ABG Oxygen Saturation 81.9 % (95-100); ABG PO2 57.9 MM HG (80-95); ABG TCO2 20.5 MMOL/L (23-27); Allen Test Positive; Pt O2 Delivery Device Ventilator
[2020-02-09 04:44] LABS: ABG PH 7.113 (7.35-7.45)
[2020-02-09 04:45] LABS: ABG PCO2 70.2 MM HG (35-48)
[2020-02-09 04:50] LABS: Basophils % 0.2 % (0.0-0.8); Hematocrit 35.9 VOL% (42.0-52.0); Hemoglobin 11.4 GM/DL (14.0-18.0); Immature Granulocytes % 3.6 %; Immature Granulocytes Absolute 0.71 #; Lymphocytes # 0.4 10*3/uL (1.4-4.0); Lymphocytes % 2.2 % (21.2-54.2); Mean Corpuscular HGB Conc 31.8 GM/DL (32-36); Mean Corpuscular Volume 98.6 FL (87-102); Mean Platelet Volume 9.1 FL (9.6-12.0); Monocytes % 5.4 % (1.7-12.7); NRBC # 0.08 10*3/uL; Neutrophils % 88.6 % (38.7-73.9); Platelet Count 222 T/CUMM (130-400); Red Blood Count 3.64 MC/CUMM (3.8-5.5); Red Cell Distribution Width 14.2 % (9.3-17.3); White Blood Count 19.9 T/CUMM (4-12)
[2020-02-09] MEDS ORDERED: SODIUM BICARBONATE 50 MEQ/50 ML VIAL IV ONE (04:54)
[2020-02-09 05:11] LABS: Calcium 7.6 MG/DL (8.5-10.1); Osmolality,Calculated 333.1 MOS/KG (273-304)
[2020-02-09 05:18] LABS: Lymphocytes 3 % (20-55); Metamyelocytes 1 %; Segmented Neutrophils 90 % (50-85); Total Cells Counted 100
[2020-02-09 05:19] LABS: Platelet Estimate Normal
[2020-02-09] MEDS: DEXAMETHASONE 10 MG/1 ML VIAL IV SCH (08:01)
[2020-02-09] MEDS: PIPERACILLIN/TAZOBACTAM 3,375 MG in SODIUM CHLORIDE 0.9% 100 ML IV SCH ×2 (08:02→20:15)
[2020-02-09] MEDS: ASCORBIC ACID 500 MG TABLET PO SCH ×2 (08:02→20:15)
[2020-02-09] MEDS: TICAGRELOR 90 MG TABLET PO SCH ×2 (08:02→20:15)
[2020-02-09] MEDS: PANTOPRAZOLE 40 MG VIAL IV SCH (08:04)
[2020-02-09] MEDS: BUDESONIDE/FORMOTEROL 160-4.5 INHALER 6 GM INH SCH ×2 (08:12→20:16)
[2020-02-09] MEDS ORDERED: ROCURONIUM 1,000 MG in SODIUM CHLORIDE 0.9% 175 ML IV PRN (08:26)
[2020-02-09] MEDS: ROCURONIUM 1,000 MG in SODIUM CHLORIDE 0.9% 175 ML IV PRN ×2 (09:35→23:52)
[2020-02-09] MEDS: fentaNYL INJ 2,500 MCG in SODIUM CHLORIDE 0.9% 75 ML IV PRN (12:03)
[2020-02-09] MEDS: NOREPINEPHRINE 8 MG in SODIUM CHLORIDE 0.9% 242 ML IV SCH ×2 (15:33→20:50)
[2020-02-09] MEDS: ATORVASTATIN 40 MG TABLET PO SCH (20:15)
[2020-02-09] MEDS: ENOXAPARIN 60 MG/0.6 ML SYRINGE SUBCUT SCH (20:15)
[2020-02-10] MEDS: ALBUTEROL INHALER 18 GM INH SCH ×3 (00:06→12:00)
[2020-02-10 03:34] LABS: ABG Base Excess -9.3 MMOL/L (-2.5-2.5); ABG HCO3 16.7 MMOL/L (20-26); ABG Oxygen Saturation 74.5 % (95-100); ABG PO2 52.6 MM HG (80-95); ABG TCO2 21.9 MMOL/L (23-27)
[2020-02-10 03:37] LABS: ABG PCO2 78.1 MM HG (35-48); ABG PH 7.079 (7.35-7.45)
[2020-02-10 04:19] LABS: Basophils % 0.2 % (0.0-0.8); Hematocrit 37.7 VOL% (42.0-52.0); Hemoglobin 11.7 GM/DL (14.0-18.0); Immature Granulocytes % 4.3 %; Immature Granulocytes Absolute 0.85 #; Lymphocytes # 0.3 10*3/uL (1.4-4.0); Lymphocytes % 1.7 % (21.2-54.2); Mean Corpuscular Volume 98.4 FL (87-102); Mean Platelet Volume 9.7 FL (9.6-12.0); Monocytes % 5.1 % (1.7-12.7); Neutrophils % 88.7 % (38.7-73.9); Platelet Count 249 T/CUMM (130-400); Red Blood Count 3.83 MC/CUMM (3.8-5.5); Red Cell Distribution Width 14.3 % (9.3-17.3); White Blood Count 19.8 T/CUMM (4-12)
[2020-02-10 04:29] LABS: PT Patient Result 10.7 SECS (9.8-11.9)
[2020-02-10 04:39] LABS: Calcium 7.3 MG/DL (8.5-10.1)
[2020-02-10 04:42] LABS: Band Neutrophils 1 % (0-10); Hypochromasia Slight; Lymphocytes 6 % (20-55); Segmented Neutrophils 88 % (50-85); Total Cells Counted 100
[2020-02-10 04:43] LABS: Microcytosis Slight
[2020-02-10] MEDS: fentaNYL INJ 2,500 MCG in SODIUM CHLORIDE 0.9% 75 ML IV PRN (04:58)
[2020-02-10] MEDS: guaiFENesin 200 MG/10 ML UDCUP PO SCH ×3 (06:00→17:06)
[2020-02-10] MEDS: PIPERACILLIN/TAZOBACTAM 3,375 MG in SODIUM CHLORIDE 0.9% 100 ML IV SCH (08:07)
[2020-02-10] MEDS: ASCORBIC ACID 500 MG TABLET PO SCH (08:09)
[2020-02-10] MEDS: TICAGRELOR 90 MG TABLET PO SCH (08:09)
[2020-02-10] MEDS: DEXAMETHASONE 10 MG/1 ML VIAL IV SCH (08:09)
[2020-02-10] MEDS: PANTOPRAZOLE 40 MG VIAL IV SCH (08:12)
[2020-02-10] MEDS: BUDESONIDE/FORMOTEROL 160-4.5 INHALER 6 GM INH SCH (08:13)
[2020-02-10] MEDS: NOREPINEPHRINE 8 MG in SODIUM CHLORIDE 0.9% 242 ML IV SCH ×2 (08:57→16:40)
[2020-02-10] MEDS: ALBUMIN 25% 12.5 GM in PREMIX 1 EACH IV SCH ×2 (10:02→17:05)
[2020-02-10] MEDS: ROCURONIUM 1,000 MG in SODIUM CHLORIDE 0.9% 175 ML IV PRN (14:30)
== END 2020-02-10 16:49 | disposition expired | DRG 871 ==
LOC: N.CC 14:13
PROVIDERS: ADMIT Internal Medicine; ATTEND Internal Medicine